=== PATIENT | male | born 1960 ===

== ENCOUNTER 2024-07-30 07:49 | Emergency (ER) | payer MEDICARE, SELFPAY ==
--- NOTE | ~2024-07-30 | CT_ITS ---
EXAMINATION: CT ABDOMEN AND PELVIS WITHOUT CONTRAST CLINICAL INFORMATION: Left flank pain. Vomiting. COMPARISON: None available. TECHNIQUE: Multidetector volumetric imaging was performed from the superior aspect of the liver through the pubic symphysis. Sagittal and coronal reformatted images were obtained on the technologist's workstation. This CT examination was performed using dose optimization techniques as appropriate, variously including the following: *Automated exposure control *Adjustment of mA and/or kV according to patient size (this includes techniques or standardized protocols for targeted exams where dose is matched to indication/reason for exam; i.e. extremities or head) *Use of iterative reconstruction technique DLP: 379 mGy-cm FINDINGS: Visualized lung bases demonstrate mild dependent atelectasis. The liver is normal in size. There is a 2 cm cyst within the right hepatic lobe. Several other sub-5 mm hepatic hypodensities are too small to accurately characterize but statistically also cysts. The pancreas, spleen and adrenal glands are unremarkable. Edematous left kidney demonstrating perinephric stranding and moderate hydronephrosis. The left ureter is also moderately dilated throughout its course. An obstructing calculus is not visualized. The right kidney is grossly unremarkable. No right-sided renal calculi or right-sided hydronephrosis. Small hiatal hernia. Normal caliber loops of small and large bowel. Moderate colonic stool burden. Mild colonic diverticulosis without CT evidence to suggest active diverticulitis. Normal appendix. Normal caliber abdominal aorta. No retroperitoneal lymphadenopathy. The bladder is prominently distended. There is moderate diffuse bladder wall thickening. The prostate gland is enlarged and results in mass effect in the posterior bladder wall. Small fat-containing inguinal hernias bilaterally. No gross free pelvic fluid. No inguinal lymphadenopathy. Diffuse osteopenia. Scoliotic and degenerative changes of the spine. CT/CT abdomen pelvis wo IV con IMPRESSION: 1. Edematous left kidney demonstrating perinephric stranding and moderate hydronephrosis. The left ureter is also moderately dilated throughout its course. An obstructing calculus is not visualized. Findings may be secondary to a recently passed stone, however, an obstructing bladder mass is not excluded. Further evaluation can be obtained with direct inspection if clinically indicated. 2. The bladder is prominently distended with moderate diffuse bladder wall thickening. The prostate gland is enlarged and results in mass effect in the posterior bladder wall. 3. Moderate colonic stool burden suggesting constipation. 4. Mild colonic diverticulosis without CT evidence to suggest active diverticulitis. Fleischner guidelines were followed. Electronically signed by: Joon Villalobos MD 07/30/2024 10:30 AM EDT
[2024-07-30 07:53] VITALS: BP 122/84; PULSE 90; O2SAT 98
[2024-07-30 07:55] VITALS: BP 136/77; PULSE 62; RESP 18; TEMP 36.3; O2SAT 100; BMI 21.3
--- NOTE | 2024-07-30 08:03 | ED_ITS ---
HPI - Abdominal Pain General Chief Complaint: General Medical Stated Complaint: FLANK PAIN,H/O STONES PER EMS Time Seen by Provider: 07/30/24 07:55 Source: patient and EMS Mode of arrival: EMS Limitations: no limitations History of Present Illness ED Provider: LATRICIA HPI narrative: 64 yo male with PMH of kidney stones reports 24 hours of L flank pain that became acutely worse in the middle of the night when he tried to urinate. He has had n/v no diarrhea. NO fevers. He notes it feels like he has a kidney stone. He states he is in a lot of pain right now. MD elicited complaint: flank pain Pertinent past history: kidney stones Onset (ago): day(s) (1) Pain Consistency: constant Location: L flank Severity: moderate Quality: stabbing Radiation: LLQ Migration to: no migration Exacerbating factors: nothing Relieving factors: nothing Context: history of similar episodes Associated symptoms: nausea and vomiting Related Data Previous Rx's ?Medication ?Instructions ?Recorded tamsulosin 0.4 mg capsule 0.4 mg PO DAILY 30 days #30 caps 07/30/24 Allergies Allergy/AdvReac Type Severity Reaction Status Date / Time aspirin [Aspirin] Allergy Mild UNKNOWN Verified 07/30/24 08:53 cefazolin [From Kefzol] Allergy Mild RASH Verified 07/30/24 08:53 Review of Systems Review of Systems Constitutional : No Weight loss, No Fever, No Chills ENT/Mouth : No sore throat, No Rhinorrhea Eyes: No Swelling, No Redness Cardiovascular : No Chest Pain, No SOB, NoEdema Respiratory : No Cough, No Sputum, No Wheezing Gastrointestinal : Positive Nausea, Positive Vomiting, no Diarrhea, positive flank Pain, No Hematochezia, No Melena Genitourinary : No Dysuria, No Urinary Frequency, No Hematuria, No Urgency Musculoskeletal : No joint pain, No Myalgias, No Joint Swelling Skin : No Skin Lesions, No rash Neuro : No Weakness, No Numbness, No Dizziness, No Headache Psych : No Anxiety/Panic, No Depression All other systems reviewed and are negative. [facility] Past Medical History Attestation statement: The following information was validated with the patient. Medical History Hearing loss Social History Social History (Updated 07/30/24 @ 08:06 by Felicity Lozano DO) Patient Tobacco Use Status: Never used Tobacco Smoked in Last 30 Days: No Use of substances other than those prescribed or required for medical reasons: No Advance Directives: No Advance Directives Information Provided: No Do you have a plan to hurt others: No Plan Physical Exam ED Vital Signs: Vital Signs - 24 hr 07/30/24 07:55 Temperature 97.4 F Pulse Rate 62 Respiratory Rate 18 Blood Pressure 136/77 Pulse Oximetry 100 Oxygen Delivery Method Room Air BMI result Body Mass Index 21.3 Appearance: Alert. Oriented X3. No acute distress. Eyes: Pupils equal, round and reactive to light. ENT: Pharynx normal. Neck: Normal inspection. Neck supple. CVS: Normal heart rate and rhythm. Pulses normal. Respiratory: No respiratory distress. Breath sounds normal. Abdomen: Soft and nontender. I do not feel any hernias on exam in either groin that are protruding Skin: Skin warm and dry. Normal skin color. Normal skin turgor. Extremities: No lower extremity edema. in both hands pinky fingers are cold and purple he states this is a normal phenomenon for him in the cold but he is not sure about raynauds dx Neuro: Oriented X 3. No motor deficit. No sensory deficit. Course Course Course Narrative: acute retention noted on CT scan unable to urinate miller ordered Medical Decision Making Medical Decision Making [facility] Narrative: 64 yo male with PMH of hearing loss and kidney stones here with c/o L flank pain at this time will need labs, UA, CT scan for renal colic, colitis, diverticulitis, hernia. IV morphine ordered for pain. Differential Diagnosis Differential Diagnoses: The differential diagnosis associated with the presentation includes renal colic, colitis, diverticulitis, hernia Admission/Observation Consideration of admission/observation: Escalation of care including admission/observation considered feels better after miller can be DC home with miller and outpatient urology Lab Data [facility] Lab Attestation statement: I reviewed the patient's lab results. 07/30/24 08:13 07/30/24 08:13 Labs: Lab Results 07/30/24 Range/Units 08:13 WBC 7.0 (4.8-10.8) X10*3/uL RBC 4.47 L (4.60-5.80) X10*6/uL Hgb 13.6 L (14.0-18.0) g/dl Hct 39.3 L (42.0-52.0) % MCV 87.9 (80.0-98.0) fL MCH 30.4 (27.0-33.0) pg MCHC 34.6 (31.0-36.0) g/dl RDW 11.9 (11.0-16.0) % Plt Count 141 L (160-400) X10*3/uL MPV 10.7 (9.4-12.4) fL Immature Gran % (Auto) 0.3 (0.0-0.4) % Neut % (Auto) 81.1 H (45-73) % Lymph % (Auto) 8.9 L (20-40) % Harmon % (Auto) 8.6 (2-11) % Eos % (Auto) 0.7 (0-4) % Baso % (Auto) 0.4 (0-2) % Lymph # (Auto) 0.6 L (1.2-4.9) X10*3/uL Harmon # (Auto) 0.6 (0.1-1.2) X10*3/uL Eos # (Auto) 0.1 (0.0-0.4) X10*3/uL Baso # (Auto) 0.0 (0.0-0.2) X10*3/uL Abs Immat Gran (auto) 0.02 (0.00-0.03) X10*3/uL Absolute Neuts (auto) 5.7 (2.0-8.3) x10*3/uL Absolute Nucleated RBC 0.000 (0.0-0.012) X10*3/uL Nucleated RBC % (auto) 0.0 (0.0-0.2) /100WBC Sodium 136 (135-145) mmol/L Potassium 3.9 (3.3-5.1) mmol/L Chloride 99 (96-108) mmol/L Carbon Dioxide 24 (22-29) mmol/L Anion Gap 17 (12-20) BUN 21 H (9-16) mg/dL Creatinine 1.06 (0.5-1.4) mg/dL Estim Creat Clear Calc 58.7 Estimated GFR > 60 Random Glucose 157 H (60-115) mg/dL Calcium 9.8 (8.4-10.2) mg/dL Magnesium 1.8 (1.6-2.6) mg/dL Total Bilirubin 0.7 (0.0-1.0) mg/dL Direct Bilirubin 0.2 (0.0-0.5) mg/dL AST 24 (5-37) U/L ALT 14 (0-40) U/L Alkaline Phosphatase 93 (39-117) U/L Total Protein 7.3 (6.5-8.0) g/dL Albumin 4.3 (3.5-5.0) g/dL Lipase 13 (8-78) U/L Urine Color Yellow Urine Appearance Clear Urine pH 7.5 (5.0-9.0) Ur Specific [place] 1.015 (1.005-1.025) Urine Protein Negative (Neg-Trace) mg/dL Urine Glucose (UA) Negative (Negative) mg/dL Urine Ketones 15 (Negative) mg/dL Urine Blood Trace H (Negative) Urine Nitrite Negative (Negative) Ur Leukocyte Esterase Negative (Negative) Urine RBC 6-10 H (0-2) /HPF Urine WBC 0-5 (0-5) /HPF Ur Squamous Epith Cells 0-2 (0-2) /HPF Urine Bacteria None Seen (None Seen) Hyaline Casts 0-2 (0-2) /LPF Independent Interpretation I performed an independent interpretation of an: CT Scan (no stone acute bladder distention) Radiology Impression Discussion of test interpretation with radiology: I have reviewed the radiologist's reading. Independent Historian Clinical information obtained from an independent historian. History obtained from or confirmed by: EMS Medications Administered Discontinued Medications Generic Name Dose Route Start Last Admin Trade Name Rosalinda PRN Reason Stop Dose Admin Morphine Sulfate 4 mg 07/30/24 07:59 07/30/24 08:20 Morphine Sulfate 4 Mg/Ml Cartridge IVPUSH 07/30/24 08:00 4 mg ONCE ONE Administration Protocol Ondansetron HCl 4 mg 07/30/24 07:59 07/30/24 08:13 Ondansetron Hcl 4 Mg/2 Ml Vial IVPUSH 07/30/24 08:00 4 mg ONCE ONE Administration Discharge Plan Discharge Clinical Impression: Acute urinary retention Patient Disposition: Home, Self-Care Instructions: Urinary Retention in Men (ED), Miller Catheter Placement and Care (ED) Additional Instructions: please call urology for follow up today catheter in place until you see them return for fevers, vomiting, worsening pain, clots in urine bag, red urine darker than koolaid or any other concerns please notify and follow up with your primary care doctor as well CT/CT abdomen pelvis wo IV con IMPRESSION: 1. Edematous left kidney demonstrating perinephric stranding and moderate hydronephrosis. The left ureter is also moderately dilated throughout its course. An obstructing calculus is not visualized. Findings may be secondary to a recently passed stone, however, an obstructing bladder mass is not excluded. Further evaluation can be obtained with direct inspection if clinically indicated. 2. The bladder is prominently distended with moderate diffuse bladder wall thickening. The prostate gland is enlarged and results in mass effect in the posterior bladder wall. 3. Moderate colonic stool burden suggesting constipation. 4. Mild colonic diverticulosis without CT evidence to suggest active diverticulitis. Prescriptions: New tamsulosin 0.4 mg capsule 0.4 mg PO DAILY 30 Days Qty: 30 0RF Referrals: [facility] [Provider Group] Print Language: Somali
[2024-07-30] MEDS: ondansetron HCL 4 MG/2 ML VIAL IVPUSH (08:13)
[2024-07-30] MEDS: Morphine Sulfate 4 MG/ML CARTRIDGE IVPUSH (08:20)
--- NOTE | 2024-07-30 08:22 | PC.NURSE ---
patient presents to ED with cc of left sided flank pain for the last 24 hours or so, patient states he has a hx of kidney stones and this feels like it has in the past. patient denies other significant past medical history, patient states he has had some difficulty starting stream but denies painful urination. patient denies fevers, nausea vomiting or diarrhea, initially patient declined pain medication, this RN placed 20g PIV and marce labs,medicated with nausea medication, patient then called this RN over and requested pain medication. patient medicated per DEC. patient ambulatory with steady gait to bathroom, was able to provide urine sample, abdomen is soft nontender, denies difficulty moving bowels. plan of care ongoing
[2024-07-30 08:26] LABS: MANUAL DIFF FLAG NO
[2024-07-30 08:27] LABS: Basophils Percent Auto 0.4 % (0-2); Eosinophils Absolute Auto 0.1 X10*3/uL (0.0-0.4); Eosinophils Percent Auto 0.7 % (0-4); Hematocrit 39.3 % (42.0-52.0); Hemoglobin 13.6 g/dl (14.0-18.0); Imm Gran Abs Auto 0.02 X10*3/uL (0.00-0.03); Imm Gran Pct Auto 0.3 % (0.0-0.4); Lymphocytes Absolute Auto 0.6 X10*3/uL (1.2-4.9); Lymphocytes Percent Auto 8.9 % (20-40); Mean Corpuscular HGB Conc 34.6 g/dl (31.0-36.0); Mean Corpuscular Hemoglobin 30.4 pg (27.0-33.0); Mean Corpuscular Volume 87.9 fL (80.0-98.0); Mean Platelet Volume 10.7 fL (9.4-12.4); Monocytes Absolute Auto 0.6 X10*3/uL (0.1-1.2); Monocytes Percent Auto 8.6 % (2-11); Neutrophils Absolute Auto 5.7 x10*3/uL (2.0-8.3); Neutrophils Percent Auto 81.1 % (45-73); Platelet Count 141 X10*3/uL (160-400); Red Blood Count 4.47 X10*6/uL (4.60-5.80); Red Cell Distribution Width 11.9 % (11.0-16.0)
[2024-07-30 08:29] LABS: Appearance Urine Clear; Color Urine Yellow; Glucose Urine UA Negative (Negative); Leukocyte Esterase Urine Negative (Negative); Nitrite Urine Negative (Negative); PH 7.5 (5.0-9.0); Specific Gravity - Urine 1.015 (1.005-1.025); UMIC TRIGGER UACC YES; Urine Blood Trace (Negative); Urine Ketones 15 mg/dL (Negative); Urine Protein Negative (Neg-Trace)
[2024-07-30 08:34] LABS: Bacteria Urine None Seen (None Seen); Hyaline Casts Urine 0-2 /LPF (0-2); Squamous Epithelial Cell Urine 0-2 /HPF (0-2); WBC Urine 0-5 /HPF (0-5)
[2024-07-30 08:45] LABS: Alanine Aminotransferase 14 U/L (0-40); Albumin Level 4.3 g/dL (3.5-5.0); Alkaline Phosphatase 93 U/L (39-117); Anion Gap 17 (12-20); Aspartate Amino Transferase 24 U/L (5-37); Bilirubin Direct 0.2 mg/dL (0.0-0.5); Bilirubin Total 0.7 mg/dL (0.0-1.0); Blood Urea Nitrogen 21 mg/dL (9-16); Calcium 9.8 mg/dL (8.4-10.2); Carbon Dioxide 24 mmol/L (22-29); Chloride 99 mmol/L (96-108); Creatinine Clr Calc Pharmacy 58.7; Estimated Glomerular Filt Rate > 60; Glucose Random 157 mg/dL (60-115); Lipase 13 U/L (8-78); Magnesium 1.8 mg/dL (1.6-2.6); Potassium 3.9 mmol/L (3.3-5.1); Sodium 136 mmol/L (135-145); Total Protein 7.3 g/dL (6.5-8.0)
--- NOTE | 2024-07-30 10:00 | PC.NURSE ---
MD called this RN over, patient noted on CT scan to have large bladder, patient bladder scanned and noted to have >800mL of urine in bladder, patient not complaining of any pain at this time, indwelling catheter placed at this time, approximately 1400mL of clear yellow urine drained immediately from patients bladder. MD made aware
[2024-07-30 10:54] VITALS: BP 113/67; PULSE 90; RESP 18; TEMP 36.4
== END 2024-07-30 10:58 | disposition home or self-care (01) ==
PROVIDERS: Emergency Provider Emergency Medicine
DX: R33.9 Retention of urine, unspecified (principal); R10.2 Pelvic and perineal pain; Z79.899 Other long term (current) drug therapy
CPT/HCPCS: 36415; 74176; 80048; 80076; 81001; 83690; 83735; 85025; 96374; 96375; 99284; J2270; J2405

== ENCOUNTER 2024-08-31 08:12 | Outpatient (AMB) | payer MEDICARE, SELFPAY ==
--- NOTE | 2024-08-30 15:26 | A.OFFVIS_ITS ---
Intake Visit Reasons: Voiding trial Intake Note: Patient is present for voiding trail Urology Medication:tamsulosin Antibiotic Allergy:none Blood Thinner:none TODAY'S PVR:0ML'S Poultry Picker Required: No Allergies aspirin [Aspirin] Allergy (Mild, Verified 08/31/24 08:28) UNKNOWN cefazolin [From Kefzol] Allergy (Mild, Verified 08/31/24 08:28) RASH Medication List - Last Reconciled 08/31/24 by Jacob Mccullough MD tamsulosin 0.4 mg PO DAILY 30 days HPI Comments Details: 08/31/24--Edward was seen in the ED 07/30/24--64 yo male with PMH of kidney stones presented with L flank pain and difficulty urinating, miller was placed. Voiding trial today. Discussed with the patient that I want to continue the tamsulosin daily. The patient states he has a history of kidney stones about 20 years he passed a stone on the right side. Plan will re-evaluate kidneys with renal ultrasound to be sure that the hydronephrosis has resolved. Also PSA screening. no recent PSA CT - BPH, left hydro no stone, c/w recently passed stone CTAP-07/30/24--Edematous left kidney demonstrating perinephric stranding and moderate hydronephrosis. The left ureter is also moderately dilated throughout its course. An obstructing calculus is not visualized. Findings may be secondary to a recently passed stone, however, an obstructing bladder mass is not excluded. Further evaluation can be obtained with direct inspection if clinically indicated. 2. The bladder is prominently distended with moderate diffuse bladder wall thickening. The prostate gland is enl PFSH Medical History Hearing loss Social History Patient Tobacco Use Status: Never used Tobacco Review of Systems Const All systems reviewed & are unremarkable except as noted in HPI and below Reports no additional complaints Eyes Reports no additional complaints ENT Reports no additional complaints Card Reports no additional complaints Resp Reports no additional complaints GI Reports no additional complaints Reports as per HPI Musc Reports no additional complaints Skin/Breast Reports system reviewed and no additional complaints, except as documented Neuro Reports no additional complaints Psych Reports no additional complaints Endo Reports no additional complaints Magen/Lymph Reports no additional complaints Aller/Immun Reports no additional complaints Physical Exam Const General: healthy appearing, no acute distress and well developed Orientation/consciousness: patient oriented x3 HEENT Head: Yes normocephalic and Yes atraumatic Eyes Conjunctivae: conjunctivae normal Neck Neck: Yes normal visual inspection Chest Chest palpation & inspection: normal inspection of the chest Resp Effort & Inspection: normal respiratory effort Cardio Rate: regular rate GI Inspection: Yes normal to inspection Palpation (GI): Soft to palpation Penis: normal penis Scrotum: scrotum normal Skin General skin exam: no rashes or lesions noted Neuro General: patient oriented x3 Extrem General: No pedal edema Psych Appearance: grossly normal Affect: normal affect Office Procedures Bladder/Catheter Procedure Details: Patient presents to office for VT. 120mls sterile water instilled through catheter, patient tolerated instillation well. Removed 18fr miller catheter, marquis ent tolerated removal well. Patient able to void approximately 50mls. MA to bladder scan patient and patient to see Dr. Castaneda for new patient visit after bladder scan completed. 42545-[id number] of Bladder Procedure code (CPT) selection complete Post Void Residual Post Residual Void Post Void Residual (PVR): 0 56808-Cnbk Void Residual by ultrasound Results Reviewed Results Reviewed: Date of Service: 07/30/24 CT ABDOMEN AND PELVIS WITHOUT CONTRAST CLINICAL INFORMATION: Left flank pain. Vomiting. COMPARISON: None available. TECHNIQUE: Multidetector volumetric imaging was performed from the superior aspect of the liver through the pubic symphysis. Sagittal and coronal reformatted images were obtained on the technologist's workstation. This CT examination was performed using dose optimization techniques as appropriate, variously including the following: *Automated exposure control *Adjustment of mA and/or kV according to patient size (this includes techniques or standardized protocols for targeted exams where dose is matched to indication/reason for exam; i.e. extremities or head) *Use of iterative reconstruction technique DLP: 379 mGy-cm FINDINGS: Visualized lung bases demonstrate mild dependent atelectasis. The liver is normal in size. There is a 2 cm cyst within the right hepatic lobe. Several other sub-5 mm hepatic hypodensities are too small to accurately characterize but statistically also cysts. The pancreas, spleen and adrenal glands are unremarkable. Edematous left kidney demonstrating perinephric stranding and moderate hydronephrosis. The left ureter is also moderately dilated throughout its course. An obstructing calculus is not visualized. The right kidney is grossly unremarkable. No right-sided renal calculi or right-sided hydronephrosis. Small hiatal hernia. Normal caliber loops of small and large bowel. Moderate colonic stool burden. Mild colonic diverticulosis without CT evidence to suggest active diverticulitis. Normal appendix. Normal caliber abdominal aorta. No retroperitoneal lymphadenopathy. The bladder is prominently distended. There is moderate diffuse bladder wall thickening. The prostate gland is enlarged and results in mass effect in the posterior bladder wall. Small fat-containing inguinal hernias bilaterally. No gross free pelvic fluid. No inguinal lymphadenopathy. Diffuse osteopenia. Scoliotic and degenerative changes of the spine. IMPRESSION: 1. Edematous left kidney demonstrating perinephric stranding and moderate hydronephrosis. The left ureter is also moderately dilated throughout its course. An obstructing calculus is not visualized. Findings may be secondary to a recently passed stone, however, an obstructing bladder mass is not excluded. Further evaluation can be obtained with direct inspection if clinically indicated. 2. The bladder is prominently distended with moderate diffuse bladder wall thickening. The prostate gland is enlarged and results in mass effect in the posterior bladder wall. 3. Moderate colonic stool burden suggesting constipation. 4. Mild colonic diverticulosis without CT evidence to suggest active diverticulitis. Assessment & Plan Assessment & Plan (1) Urinary retention: Code(s): R33.9 - Retention of urine, unspecified Category: Medical (2) BPH loc w urin obs/LUTS: Code(s): N40.1 - Benign prostatic hyperplasia with lower urinary tract symptoms Category: Medical (3) Hydronephrosis: Code(s): N13.30 - Unspecified hydronephrosis Category: Medical (4) Screening PSA (prostate specific antigen): Code(s): Z12.5 - Encounter for screening for malignant neoplasm of prostate Category: Medical Plan Voiding trial today. Discussed with the patient that I want to continue the tamsulosin daily. The patient states he has a history of kidney stones about 20 years he passed a stone on the right side. Plan will re-evaluate kidneys with renal ultrasound to be sure that the hydronephrosis has resolved. Also PSA screening. Orders: Orders AMB Bladder/Catheter Procedure Today N13.30 - Unspecified hydronephrosis, N40.1 - Benign prostatic hyperplasia with lower urinary tract symptoms, R33.9 - Retention of urine, unspecified PSA,Total (Free>4and<10) 1 Month Z12.5 - Encounter for screening for malignant neoplasm of prostate US renal BI Today N13.30 - Unspecified hydronephrosis Medications: Refilled tamsulosin 0.4 mg PO DAILY 30 days 90 caps 3RF Patient Instructions: The patient had an opportunity to ask questions regarding treatment plan. The patient expressed understanding and agreement with the above treatment plan. The patient is aware they should contact our office by phone for worsening of their current condition or the appearance of new symptoms. Compliance is encouraged with any medications and followup testing that is ordered. It is a privilege to be allowed the opportunity to participate in the urologic care of your patient. If you have any questions or concerns regarding treatment for the above conditions please do not hesitate to contact me. The office telephone contact is [phone]. This note is constructed in part using voice recognition software. While every effort has been made to ensure accuracy day haul youth supervisor errors may have been included. Yours sincerely, Jacob Mccullough MD Coding Level of Care Code New Pt Level 4 (62242) Diagnoses Urinary retention R33.9 BPH loc w urin obs/LUTS N40.1 Hydronephrosis N13.30 Screening PSA (prostate specific antigen) Z12.5 CPT Codes Bladder/Catheter Procedure - CPT: 74832-Poaghvqlxk of Bladder ([id number]) Post Residual Void - PVR CPT Code: 86873-Hdwp Void Residual by ultrasound ([id number])
== END 2024-08-31 09:14 | disposition home or self-care (01) ==
PROVIDERS: Visit Provider Urology
DX: R33.9 Retention of urine, unspecified (principal); N40.1 Benign prostatic hyperplasia with lower urinary tract symptoms; N13.30 Unspecified hydronephrosis; Z12.5 Encounter for screening for malignant neoplasm of prostate
CPT/HCPCS: 51700; 99204

== ENCOUNTER → 2024-08-31 08:12 | Outpatient (BNVA) | payer MEDICARE, SELFPAY | PROVIDERS: Visit Provider Urology | DX: N40.1 Benign prostatic hyperplasia with lower urinary tract symptoms (principal); R33.8 Other retention of urine; N13.30 Unspecified hydronephrosis; Z87.442 Personal history of urinary calculi; Z12.5 Encounter for screening for malignant neoplasm of prostate | CPT/HCPCS: 51700; 51798; 99202 ==

== ENCOUNTER 2024-09-12 06:51 | Emergency (ER) | payer MEDICARE, SELFPAY ==
--- NOTE | ~2024-09-12 | US_ITS ---
EXAMINATION: US RETROPERITONEAL LIMITED (RENAL ONLY) CLINICAL INFORMATION: Left flank pain. COMPARISON: None available. TECHNIQUE: Grayscale and Doppler images of the right and left kidney were obtained. FINDINGS: RIGHT KIDNEY: 9.5 x 4.7 x 4.8 cm (SAG x AP x TRV). The kidney is normal in size, contour, and echogenicity. Renal cortical thickness is normal. Minimal pelvic fullness without significant hydronephrosis. No definite renal stone. No discrete parenchymal lesion. LEFT KIDNEY: 9.9 x 4.7 x 4.7 cm (SAG x AP x TRV). The kidney is normal in size, contour, and echogenicity. Renal cortical thickness is normal. Minimal pelvic fullness without significant hydronephrosis. No definite renal stone. No discrete parenchymal lesion. US/US renal BI IMPRESSION: Minimal bilateral pelvic fullness without significant hydronephrosis. No definite renal stone. Electronically signed by: Oskar Hu MD 09/12/2024 10:01 AM [facility]
--- NOTE | ~2024-09-12 | US_ITS ---
EXAMINATION: US SCROTUM WITH SCROTAL DOPPLER CLINICAL INFORMATION: Left testicular pain and swelling. COMPARISON: None available. TECHNIQUE: A sonogram of the scrotum was performed assessing oshea-scale appearance and color Doppler flow. Spectral Doppler analysis of the arterial and venous flow were performed in the testes bilaterally. FINDINGS: RIGHT: Right testicle measures 3.6 x 2.5 x 2.6 cm, volume 12.2 mL. No focal testicular parenchymal lesions are visualized. Spectral Doppler analysis of the arterial and venous flow is normal in the right testis. Right epididymal head is normal in size. No right hydrocele or varicocele is seen. Right epididymal Doppler flow is normal. LEFT: Left testicle measures 3.6 x 2.9 x 3.7 cm, volume 18.2 mL. Left testicular parenchymal echotexture is heterogeneous. There is increased vascularity in the left testicle compared to the right side. Spectral Doppler analysis of the arterial and venous flow is normal in the left testis. Left epididymis appears prominent in size with increased vascularity. Small left hydrocele is noted with internal septations. No left varicocele. There is mild asymmetrical thickening of the left-sided scrotal skin compared to right. No evidence of focal abscess collection within the skin and subcutaneous tissue of the left scrotum or within the left testicle or extratesticular region. There is no evidence of findings suggestive of Sasha gangrene. Recommend clinical correlation. US/US scrotum IMPRESSION: 1. Findings are most likely suggestive of acute left epididymoorchitis. However given the heterogeneous echotexture of the left testicular parenchyma, recommend close clinical follow-up and short-term interval follow-up imaging to exclude other underlying infiltrative disease process. No evidence of testicular or extratesticular abscess collection at this time. 2. No evidence of active testicular torsion. 3. Small left complex hydrocele. 4. Mild asymmetrical thickening of the left-sided scrotal skin and subcutaneous tissue without focal fluid collection or increased vascularity. The findings were discussed in detail with Dr. Lozano on 09/12/2024 at 10:02 AM. Electronically signed by: Logan Nicole MD 09/12/2024 10:09 AM [facility] [place]
--- NOTE | ~2024-09-12 | US_ITS ---
EXAMINATION: US SCROTUM WITH SCROTAL DOPPLER CLINICAL INFORMATION: Left testicular pain and swelling. COMPARISON: None available. TECHNIQUE: A sonogram of the scrotum was performed assessing oshea-scale appearance and color Doppler flow. Spectral Doppler analysis of the arterial and venous flow were performed in the testes bilaterally. FINDINGS: RIGHT: Right testicle measures 3.6 x 2.5 x 2.6 cm, volume 12.2 mL. No focal testicular parenchymal lesions are visualized. Spectral Doppler analysis of the arterial and venous flow is normal in the right testis. Right epididymal head is normal in size. No right hydrocele or varicocele is seen. Right epididymal Doppler flow is normal. LEFT: Left testicle measures 3.6 x 2.9 x 3.7 cm, volume 18.2 mL. Left testicular parenchymal echotexture is heterogeneous. There is increased vascularity in the left testicle compared to the right side. Spectral Doppler analysis of the arterial and venous flow is normal in the left testis. Left epididymis appears prominent in size with increased vascularity. Small left hydrocele is noted with internal septations. No left varicocele. There is mild asymmetrical thickening of the left-sided scrotal skin compared to right. No evidence of focal abscess collection within the skin and subcutaneous tissue of the left scrotum or within the left testicle or extratesticular region. There is no evidence of findings suggestive of Sasha gangrene. Recommend clinical correlation. US/US scrotum doppler IMPRESSION: 1. Findings are most likely suggestive of acute left epididymoorchitis. However given the heterogeneous echotexture of the left testicular parenchyma, recommend close clinical follow-up and short-term interval follow-up imaging to exclude other underlying infiltrative disease process. No evidence of testicular or extratesticular abscess collection at this time. 2. No evidence of active testicular torsion. 3. Small left complex hydrocele. 4. Mild asymmetrical thickening of the left-sided scrotal skin and subcutaneous tissue without focal fluid collection or increased vascularity. The findings were discussed in detail with Dr. Lozano on 09/12/2024 at 10:02 AM. Electronically signed by: Logan Nicole MD 09/12/2024 10:09 AM [facility] [place]
[2024-09-12 06:53] VITALS: BP 121/76; PULSE 98; RESP 20; TEMP 36.6; O2SAT 100
--- NOTE | 2024-09-12 07:29 | ED_ITS ---
HPI - Male Genitourinary General Chief complaint: Urogenital-Male Stated complaint: possible UTI that is spreading Time Seen by Provider: 09/12/24 07:07 Source: patient and old records reviewed Mode of arrival: ambulatory Limitations: no limitations History of Present Illness ED Provider: LATRICIA AREVALO Narrative: 64 yo male with PMH of kidney stones and BPH who was seen in our ED on 07/30 for retention and L hydronephrosis on CT scan but no infection and started on miller catheter. Seen in urology office 08/30 cathteter removed but since then havin pain and AM noted L testicle pain and swelling. He has no fevers or chills. He refuses another catheter. He is not vomiting. MD Complaint: testicle pain and testicle swelling Onset (ago): week(s) (but worse over past few days) Duration: constant Location: left testicle Radiation: penis and left testicle Severity: moderate Quality: aching Relieving factors: none Exacerbating factors: palpation and movement Context: indwelling catheter Associated symptoms: Reports discharge, swelling, mass and rash Related Data Previous Rx's ?Medication ?Instructions ?Recorded tamsulosin 0.4 mg capsule 0.4 mg PO DAILY 30 days #90 caps 08/31/24 amoxicillin 875 mg-potassium 1 tab PO BID #14 tabs 09/12/24 clavulanate 125 mg tablet levofloxacin 750 mg tablet 750 mg PO DAILY #9 tabs 09/12/24 Allergies Allergy/AdvReac Type Severity Reaction Status Date / Time cefazolin [From Kefzol] Allergy Mild RASH Verified 09/12/24 06:58 Review of Systems 2 Review of Systems: Constitutional : No Fever, No Chills, No Fatigue ENT/Mouth : No sore throat, No Rhinorrhea Eyes: No Eye Pain, No Swelling, No Redness Cardiovascular : No Chest Pain, No SOB, No Dyspnea on Exertion Respiratory : No Cough, No Sputum Gastrointestinal : No Nausea, No Vomiting, No Diarrhea, No abdominal Pain Genitourinary : No Dysuria, No Urinary Frequency, No Hematuria, pos testicle pain and swelling Musculoskeletal : No joint pain, No Myalgias, No Joint Swelling Skin : No Skin Lesions, No rash Neuro : No Weakness, No Numbness, No Dizziness, no Headache Psych : No Anxiety/Panic, No Depression All other systems reviewed and are negative PMFSH Past Medical History Attestation statement: The following information was validated with the patient. Source: old records reviewed Medical History Hearing loss Social History Social History Patient Tobacco Use Status: Never used Tobacco Smoked in Last 30 Days: No Use of substances other than those prescribed or required for medical reasons: No Advance Directives: No Advance Directives Information Provided: Yes Do you have a plan to hurt others: No Plan Physical Exam 2 Vital Signs: Vital Signs: Last Vital Signs Temp 97.9 F 09/12/24 10:15 Pulse 87 09/12/24 10:15 Resp 18 09/12/24 10:15 BP 117/74 09/12/24 10:15 Pulse Ox 98 09/12/24 10:15 O2 Del Method Room Air 09/12/24 10:15 BMI result Body Mass Index 20.0 Appearance: Alert. Oriented X3. No acute distress. anxious Eyes: Pupils equal, round and reactive to light. ENT: Pharynx normal. Neck: Normal inspection. Neck supple. CVS: Normal heart rate and rhythm. Pulses normal. Respiratory: No respiratory distress. Breath sounds normal. Abdomen: Soft and nontender. : Milena RN present L testicle swollen and indurated small portion under side of penis no stephane abscess felt seems more cellulitic, L spermatic cord very ttp Skin: Skin warm and dry. Normal skin color. Extremities: No lower extremity edema. Neuro: Oriented X 3. No motor deficit. No sensory deficit. Medications Administered Generic Name Dose Route Start Last Admin Trade Name Freq PRN Reason Stop Dose Admin Levofloxacin 750 mg in 150 mls @ 100 mls/hr 09/12/24 10:03 09/12/24 10:26 Levaquin IV 09/12/24 11:32 100 mls/hr ONCE ONE Administration Discontinued Medications Generic Name Dose Route Start Last Admin Trade Name Freq PRN Reason Stop Dose Admin Piperacillin Sod/Tazobactam 50 mls @ 100 mls/hr 09/12/24 07:18 09/12/24 08:34 Sod 3.375 gm/ Sodium Chloride IV 09/12/24 07:47 Infused ONCE ONE Infusion Medical Decision Making Medical Decision Making MDM Narrative: 64 yo male with PMH of kidney stones and BPH here with c/o worsening pain and testicle swelling since cath removal though he does not L testicle pain and swelling really got worse on - he denies fevers or chills. At this time he also has some mild L flank pain on exam he has cellulitis of the scrotum vs abscess. I have ordered labs, US, renal US he declines pain medications. No signs of carolyn on clinical exam. IV zosyn ordered he can tolerate PCNs per his report. Differential Diagnosis Differential Diagnoses: The differential diagnosis associated with the presentation includes cellulitis, abscess, UTI Admission/Observation Consideration of admission/observation: Escalation of care including admission/observation considered afebrile neg lactic acid normal VS WBC 12.6 he does not want to stay urinating without signs of retention he can tolerate oral it is reasonable to trial outpatient levofloxacin and cephalexin Lab Data MDM Lab Attestation statement: I reviewed the patient's lab results. 09/12/24 07:26 09/12/24 07:27 Labs: Lab Results 09/12/24 09/12/24 09/12/24 Range/Units 07:26 07:27 07:30 WBC 12.6 H (4.8-10.8) X10*3/uL RBC 4.28 L (4.60-5.80) X10*6/uL Hgb 12.6 L (14.0-18.0) g/dl Hct 37.1 L (42.0-52.0) % MCV 86.7 (80.0-98.0) fL MCH 29.4 (27.0-33.0) pg MCHC 34.0 (31.0-36.0) g/dl RDW 11.8 (11.0-16.0) % Plt Count 180 D (160-400) X10*3/uL MPV 10.0 (9.4-12.4) fL Immature Gran % (Auto) 0.6 H (0.0-0.4) % Neut % (Auto) 83.2 H (45-73) % Lymph % (Auto) 5.1 L (20-40) % [place] % (Auto) 10.8 (2-11) % Eos % (Auto) 0.1 (0-4) % Baso % (Auto) 0.2 (0-2) % Lymph # (Auto) 0.7 L (1.2-4.9) X10*3/uL [place] # (Auto) 1.4 H (0.1-1.2) X10*3/uL Eos # (Auto) 0.0 (0.0-0.4) X10*3/uL Baso # (Auto) 0.0 (0.0-0.2) X10*3/uL Abs Immat Gran (auto) 0.07 H (0.00-0.03) X10*3/uL Absolute Neuts (auto) 10.5 H (2.0-8.3) x10*3/uL Absolute Nucleated RBC 0.000 (0.0-0.012) X10*3/uL Nucleated RBC % (auto) 0.0 (0.0-0.2) /100WBC Hold Purple Top SEE NOTE PT 13.4 H (10.9-12.4) SEC INR 1.2 H (0.9-1.1) Sodium 136 (135-145) mmol/L Potassium 4.0 (3.3-5.1) mmol/L Chloride 98 (96-108) mmol/L Carbon Dioxide 28 (22-29) mmol/L Anion Gap 14 (12-20) BUN 15 (9-16) mg/dL Creatinine 0.90 (0.5-1.4) mg/dL Estim Creat Clear Calc 66.8 Estimated GFR > 60 Random Glucose 98 (60-115) mg/dL Lactic Acid 1.2 (0.5-2.0) mmol/L Calcium 10.0 (8.4-10.2) mg/dL Magnesium 2.0 (1.6-2.6) mg/dL Total Bilirubin 1.1 H (0.0-1.0) mg/dL Direct Bilirubin 0.4 (0.0-0.5) mg/dL AST 23 (5-37) U/L ALT 12 (0-40) U/L Alkaline Phosphatase 98 (39-117) U/L Total Protein 7.5 (6.5-8.0) g/dL Albumin 4.0 (3.5-5.0) g/dL Urine Color Urine Appearance Urine pH (5.0-9.0) Ur Specific [place] (1.005-1.025) Urine Protein (Neg-Trace) mg/dL Urine Glucose (UA) (Negative) mg/dL Urine Ketones (Negative) mg/dL Urine Blood (Negative) Urine Nitrite (Negative) Ur Leukocyte Esterase (Negative) Urine RBC (0-2) /HPF Urine WBC (0-5) /HPF Ur Squamous Epith Cells (0-2) /HPF Urine Bacteria (None Seen) Hyaline Casts (0-2) /LPF 09/12/24 Range/Units 07:58 WBC (4.8-10.8) X10*3/uL RBC (4.60-5.80) X10*6/uL Hgb (14.0-18.0) g/dl Hct (42.0-52.0) % MCV (80.0-98.0) fL MCH (27.0-33.0) pg MCHC (31.0-36.0) g/dl RDW (11.0-16.0) % Plt Count (160-400) X10*3/uL MPV (9.4-12.4) fL Immature Gran % (Auto) (0.0-0.4) % Neut % (Auto) (45-73) % Lymph % (Auto) (20-40) % [place] % (Auto) (2-11) % Eos % (Auto) (0-4) % Baso % (Auto) (0-2) % Lymph # (Auto) (1.2-4.9) X10*3/uL [place] # (Auto) (0.1-1.2) X10*3/uL Eos # (Auto) (0.0-0.4) X10*3/uL Baso # (Auto) (0.0-0.2) X10*3/uL Abs Immat Gran (auto) (0.00-0.03) X10*3/uL Absolute Neuts (auto) (2.0-8.3) x10*3/uL Absolute Nucleated RBC (0.0-0.012) X10*3/uL Nucleated RBC % (auto) (0.0-0.2) /100WBC Hold Purple Top PT (10.9-12.4) SEC INR (0.9-1.1) Sodium (135-145) mmol/L Potassium (3.3-5.1) mmol/L Chloride (96-108) mmol/L Carbon Dioxide (22-29) mmol/L Anion Gap (12-20) BUN (9-16) mg/dL Creatinine (0.5-1.4) mg/dL Estim Creat Clear Calc Estimated GFR Random Glucose (60-115) mg/dL Lactic Acid (0.5-2.0) mmol/L Calcium (8.4-10.2) mg/dL Magnesium (1.6-2.6) mg/dL Total Bilirubin (0.0-1.0) mg/dL Direct Bilirubin (0.0-0.5) mg/dL AST (5-37) U/L ALT (0-40) U/L Alkaline Phosphatase (39-117) U/L Total Protein (6.5-8.0) g/dL Albumin (3.5-5.0) g/dL Urine Color Yellow Urine Appearance Turbid Urine pH 7.5 (5.0-9.0) Ur Specific [place] 1.020 (1.005-1.025) Urine Protein 100 (2+) H (Neg-Trace) mg/dL Urine Glucose (UA) Negative (Negative) mg/dL Urine Ketones 15 (Negative) mg/dL Urine Blood Large (3+) H (Negative) Urine Nitrite Positive H (Negative) Ur Leukocyte Esterase Large (3+) H (Negative) Urine RBC >20 H (0-2) /HPF Urine WBC >50 H (0-5) /HPF Ur Squamous Epith Cells 0-2 (0-2) /HPF Urine Bacteria 4+ (None Seen) Hyaline Casts 0-2 (0-2) /LPF Independent Interpretation I performed an independent interpretation of an: Ultrasound (no torsion no abscess and hydronephrosis improved) Radiology Impression Discussion of test interpretation with radiology: I discussed test interpretation with the radiologist and I have reviewed the radiologist's reading. Radiologist Impression: call from Radiology 1002am L epidymitis and orchitis, L testicular is heterogenous follow up US make sure no other infiltrative process External Record Review External record reviewed: Inpatient record and Outpatient record Prescription Management I considered prescription management with: Pain Medication and Antibiotic Discharge Plan Discharge Clinical Impression: Orchitis and epididymitis, Cellulitis of scrotum Urinary tract infection Qualifiers: Urinary tract infection type: acute cystitis Hematuria presence: with hematuria Qualified Code(s): N30.01 - Acute cystitis with hematuria Patient Disposition: Home, Self-Care Instructions: Epididymo-Orchitis (ED), Urinary Tract Infection in Men (ED), Cellulitis (ED) Additional Instructions: next dose of the levofloxacin is tomorrow AM augmentin (amoxicillin) dose is tonight take a probiotic with both antibiotics, avoid strenuous activity beyond stretching while on antibiotics and for 5 days after you can injure your tendons stay hydrated but no more than 60 ounces of water a day wear tight fitting underwear for support On amoxicillin-clavulanate, softer bowel movements are to be expected. Call your provider if you move your bowels more than 4 times a day, your bowel movements are almost all liquid, or you get a rash.? return for fevers, worsening pain, confusion, vomiting, unable to eat or drink or any other concerns call Urologist Saturday and follow up within a week REPEAT ULTRASOUND OF LEFT TESTICLE ONCE ANTIBIOTICS COMPLETED RIGHT KIDNEY: 9.5 x 4.7 x 4.8 cm (SAG x AP x TRV). The kidney is normal in size, contour, and echogenicity. Renal cortical thickness is normal. Minimal pelvic fullness without significant hydronephrosis. No definite renal stone. No discrete parenchymal lesion. LEFT KIDNEY: 9.9 x 4.7 x 4.7 cm (SAG x AP x TRV). The kidney is normal in size, contour, and echogenicity. Renal cortical thickness is normal. Minimal pelvic fullness without significant hydronephrosis. No definite renal stone. No discrete parenchymal lesion. US/US renal BI IMPRESSION: Minimal bilateral pelvic fullness without significant hydronephrosis. No definite renal stone. US/US scrotum doppler IMPRESSION: 1. Findings are most likely suggestive of acute left epididymoorchitis. However given the heterogeneous echotexture of the left testicular parenchyma, recommend close clinical follow-up and short-term interval follow-up imaging to exclude other underlying infiltrative disease process. No evidence of testicular or extratesticular abscess collection at this time. 2. No evidence of active testicular torsion. 3. Small left complex hydrocele. 4. Mild asymmetrical thickening of the left-sided scrotal skin and subcutaneous tissue without focal fluid collection or increased vascularity. Prescriptions: New amoxicillin-pot clavulanate 875-125 mg tablet 1 tab PO BID Qty: 14 0RF levofloxacin 750 mg tablet 750 mg PO DAILY Qty: 9 0RF No Action tamsulosin 0.4 mg capsule 0.4 mg PO DAILY 30 Days Qty: 90 3RF Referrals: [facility] [Provider Group] Print Language: Kyrgyz
[2024-09-12 07:33] LABS: MANUAL DIFF FLAG NO
[2024-09-12 07:41] LABS: Basophils Percent Auto 0.2 % (0-2); Eosinophils Percent Auto 0.1 % (0-4); Hematocrit 37.1 % (42.0-52.0); Hemoglobin 12.6 g/dl (14.0-18.0); Imm Gran Abs Auto 0.07 X10*3/uL (0.00-0.03); Imm Gran Pct Auto 0.6 % (0.0-0.4); Lymphocytes Absolute Auto 0.7 X10*3/uL (1.2-4.9); Lymphocytes Percent Auto 5.1 % (20-40); Mean Corpuscular Hemoglobin 29.4 pg (27.0-33.0); Mean Corpuscular Volume 86.7 fL (80.0-98.0); Monocytes Absolute Auto 1.4 X10*3/uL (0.1-1.2); Monocytes Percent Auto 10.8 % (2-11); Neutrophils Absolute Auto 10.5 x10*3/uL (2.0-8.3); Neutrophils Percent Auto 83.2 % (45-73); Platelet Count 180 X10*3/uL (160-400); Red Blood Count 4.28 X10*6/uL (4.60-5.80); Red Cell Distribution Width 11.8 % (11.0-16.0); White Blood Count 12.6 X10*3/uL (4.8-10.8)
[2024-09-12 07:48] LABS: INTERNATIONAL NORM RATIO 1.2 (0.9-1.1); Prothrombin Time 13.4 SEC (10.9-12.4)
[2024-09-12 07:49] LABS: Alanine Aminotransferase 12 U/L (0-40); Alkaline Phosphatase 98 U/L (39-117); Anion Gap 14 (12-20); Aspartate Amino Transferase 23 U/L (5-37); Bilirubin Direct 0.4 mg/dL (0.0-0.5); Bilirubin Total 1.1 mg/dL (0.0-1.0); Blood Urea Nitrogen 15 mg/dL (9-16); Carbon Dioxide 28 mmol/L (22-29); Chloride 98 mmol/L (96-108); Creatinine Clr Calc Pharmacy 66.8; Estimated Glomerular Filt Rate > 60; Glucose Random 98 mg/dL (60-115); Sodium 136 mmol/L (135-145); Total Protein 7.5 g/dL (6.5-8.0)
[2024-09-12 07:56] LABS: Lactic Acid 1.2 mmol/L (0.5-2.0)
[2024-09-12] MEDS: Piperacillin Sodium/Tazobactam 3.375 GM in 0.9 % Sodium Chloride 50 ML IV (07:57)
[2024-09-12 08:07] LABS: Appearance Urine Turbid; Color Urine Yellow; Glucose Urine UA Negative (Negative); Leukocyte Esterase Urine Large (3+) (Negative); Nitrite Urine Positive (Negative); PH 7.5 (5.0-9.0); UMIC TRIGGER UACC YES; Urine Blood Large (3+) (Negative); Urine Ketones 15 mg/dL (Negative); Urine Protein 100 (2+) mg/dL (Neg-Trace)
[2024-09-12 08:12] LABS: Bacteria Urine 4+ (None Seen); Hyaline Casts Urine 0-2 /LPF (0-2); RBC Urine >20 /HPF (0-2); Squamous Epithelial Cell Urine 0-2 /HPF (0-2); UACC Culture Trigger YES; WBC Urine >50 /HPF (0-5)
[2024-09-12 10:15] VITALS: BP 117/74; PULSE 87; RESP 18; TEMP 36.6; O2SAT 98
[2024-09-12] MEDS: levoFLOXacin/D5W 750 MG/150 ML PIGGYBACK 100 MG IV (10:26)
[2024-09-12 10:53] VITALS: BP 117/74; PULSE 87; RESP 18; TEMP 36.6; O2SAT 98
== END 2024-09-12 12:16 | disposition home or self-care (01) ==
PROVIDERS: Emergency Provider Emergency Medicine
DX: N45.3 Epididymo-orchitis (principal); N30.01 Acute cystitis with hematuria; N49.2 Inflammatory disorders of scrotum; N50.812 Left testicular pain; R33.9 Retention of urine, unspecified; R79.1 Abnormal coagulation profile; Z79.899 Other long term (current) drug therapy
CPT/HCPCS: 36415; 76775; 76870; 80048; 80076; 81001; 83605; 83735; 85025; 85610; 87040; 87086; 87088; 87186; 93975; 96365; 96366; 96367; 99284; J1956; J2543

== ENCOUNTER 2024-10-21 07:39 | Outpatient (REF) | payer MEDICARE, SELFPAY ==
--- NOTE | ~2024-10-21 | US_ITS ---
CLINICAL HISTORY: N13.30 - Unspecified hydronephrosis Exam: Ultrasound of the kidneys. Comparison: September 12, 2024. Findings: Right kidney measures 8.9 x 5.0 x 4.8 cm in size. Echogenic focus within the upper pole of the right kidney measures 4 mm in size. There is a 6 mm cyst within the upper pole of the right kidney. No hydronephrosis. Left kidney measures 9.9 x 4.9 x 5.6 cm in size. There is a 4 mm cyst within the lower pole of the left kidney. No hydronephrosis. Impression: Nonobstructing stone within the upper pole of the right kidney. This document has been electronically signed by: Jameson Haney MD on 10/22/2024 10:02:07
== END 2024-10-21 07:40 | disposition home or self-care (01) ==
LOC: HO.US 07:39
PROVIDERS: Visit Provider Urology
DX: N13.30 Unspecified hydronephrosis (principal)
CPT/HCPCS: 76775

== ENCOUNTER → 2024-10-21 07:44 | Outpatient (BNV) | payer MEDICARE, SELFPAY | PROVIDERS: Visit Provider Radiology Diagnostic Radiology | DX: N20.0 Calculus of kidney (principal) | CPT/HCPCS: 76775 ==

== ENCOUNTER 2024-11-12 08:06 | Outpatient (AMB) | payer MEDICARE, SELFPAY ==
--- NOTE | 2024-11-12 08:17 | A.OFFVIS_ITS ---
Intake Visit Reasons: 10w/US/PVR Intake Note: Urology medications: flomax Allergies: kefzol Passed VT 08/31/24 Seen in ER 09/12/24 Welfare Worker Required: No Allergies cefazolin [From Kefzol] Allergy (Mild, Verified 09/12/24 06:58) RASH Medication List - Last Reconciled 11/12/24 by Chris Carver LPN amoxicillin-pot clavulanate 875-125 mg 1 tab PO BID levofloxacin 750 mg PO DAILY tamsulosin 0.4 mg PO DAILY 30 days HPI Comments Details: 11/12/2024--Bo is a 64-year-old male who is followed for BPH with symptoms of urinary retention. He had a Miller catheter which was removed he is on tamsulosin daily. Bladder scan PVR today is 151 mL. Renal US 10/21/24--Right kidney kidney stone 4 mm in size. 6 mm cyst within the upper pole of the right kidney. Left kidney measures 4 mm cyst within the lower pole of the left kidney. No hydronephrosis. 08/31/24--Bo was seen in the ED 07/30/24--64 yo male with PMH of kidney stones presented with L flank pain and difficulty urinating, imller was placed. Voiding trial today. Discussed with the patient that I want to continue the tamsulosin daily. The patient states he has a history of kidney stones about 20 years he passed a stone on the right side. Plan will re-evaluate kidneys with renal ultrasound to be sure that the hydronephrosis has resolved. Also PSA screening. no recent PSA CT - BPH, left hydro no stone, c/w recently passed stone CTAP-07/30/24--Edematous left kidney demonstrating perinephric stranding and moderate hydronephrosis. The left ureter is also moderately dilated throughout its course. An obstructing calculus is not visualized. Findings may be secondary to a recently passed stone, however, an obstructing bladder mass is not excluded. The bladder is prominently distended with moderate diffuse bladder wall thickening. The prostate gland is enl PFSH Medical History Hearing loss Social History Patient Tobacco Use Status: Never used Tobacco Review of Systems Const All systems reviewed & are unremarkable except as noted in HPI and below Reports no additional complaints Eyes Reports no additional complaints ENT Reports no additional complaints Card Reports no additional complaints Resp Reports no additional complaints GI Reports no additional complaints Reports as per HPI Musc Reports no additional complaints Skin/Breast Reports system reviewed and no additional complaints, except as documented Neuro Reports no additional complaints Psych Reports no additional complaints Endo Reports no additional complaints Magen/Lymph Reports no additional complaints Aller/Immun Reports no additional complaints Office Procedures Post Void Residual Post Residual Void Post Void Residual (PVR): 151 [id number] Void Residual by ultrasound Results AMB Urinalysis, Automated UA Leukoctes 0 [place]/uL Last Edit by Chris Carver LPN on 11/12/24 08:25 UA Nitrite Negative Last Edit by Chris Carver LPN on 11/12/24 08:25 UA Urobilinogen 0.2 mg/dL Last Edit by Chris Carver LPN on 11/12/24 08:25 UA Protein 0 mg/dL Last Edit by Chris Carver LPN on 11/12/24 08:25 UA pH 6.0 Last Edit by Chris Carver LPN on 11/12/24 08:25 UA Blood 10 Daniel/uL Last Edit by Chris Carver LPN on 11/12/24 08:25 UA Specific [place] 1.010 Last Edit by Chris Carver LPN on 11/12/24 08:25 UA Ketone Negative Last Edit by Chris Carver LPN on 11/12/24 08:25 UA Bilirubin 0 mg/dL Last Edit by Chris Carver LPN on 11/12/24 08:25 UA Glucose 0 mg/dL Last Edit by Chris Carver LPN on 11/12/24 08:25 Results Reviewed Results Reviewed: Laboratory Last Values Urine pH (Auto) 6.0 11/12/24 08:17 Specific [place] (Auto) 1.010 11/12/24 08:17 Urine Protein (Auto) 0 mg/dL 11/12/24 08:17 Glucose (UA)(Auto) 0 mg/dL 11/12/24 08:17 Urine Ketones (Auto) Negative 11/12/24 08:17 Urine Blood (Auto) 10 Daniel/uL 11/12/24 08:17 Urine Nitrite (Auto) Negative 11/12/24 08:17 Urine Bilirubin (Auto) 0 mg/dL 11/12/24 08:17 Urine Urobilinogen (Auto) 0.2 mg/dL 11/12/24 08:17 Leukocyte Esterase (Auto) 0 [place]/uL 11/12/24 08:17 Date of Service: 10/21/24 Exam: Ultrasound of the kidneys. Comparison: September 12, 2024. Findings: Right kidney measures 8.9 x 5.0 x 4.8 cm in size. Echogenic focus within the upper pole of the right kidney measures 4 mm in size. There is a 6 mm cyst within the upper pole of the right kidney. No hydronephrosis. Left kidney measures 9.9 x 4.9 x 5.6 cm in size. There is a 4 mm cyst within the lower pole of the left kidney. No hydronephrosis. Impression: Nonobstructing stone within the upper pole of the right kidney. Date of Service: 07/30/24 CT ABDOMEN AND PELVIS WITHOUT CONTRAST CLINICAL INFORMATION: Left flank pain. Vomiting. COMPARISON: None available. TECHNIQUE: Multidetector volumetric imaging was performed from the superior aspect of the liver through the pubic symphysis. Sagittal and coronal reformatted images were obtained on the technologist's workstation. This CT examination was performed using dose optimization techniques as appropriate, variously including the following: *Automated exposure control *Adjustment of mA and/or kV according to patient size (this includes techniques or standardized protocols for targeted exams where dose is matched to indication/reason for exam; i.e. extremities or head) *Use of iterative reconstruction technique DLP: 379 mGy-cm FINDINGS: Visualized lung bases demonstrate mild dependent atelectasis. The liver is normal in size. There is a 2 cm cyst within the right hepatic lobe. Several other sub-5 mm hepatic hypodensities are too small to accurately characterize but statistically also cysts. The pancreas, spleen and adrenal glands are unremarkable. Edematous left kidney demonstrating perinephric stranding and moderate hydronephrosis. The left ureter is also moderately dilated throughout its course. An obstructing calculus is not visualized. The right kidney is grossly unremarkable. No right-sided renal calculi or right-sided hydronephrosis. Small hiatal hernia. Normal caliber loops of small and large bowel. Moderate colonic stool burden. Mild colonic diverticulosis without CT evidence to suggest active diverticulitis. Normal appendix. Normal caliber abdominal aorta. No retroperitoneal lymphadenopathy. The bladder is prominently distended. There is moderate diffuse bladder wall thickening. The prostate gland is enlarged and results in mass effect in the posterior bladder wall. Small fat-containing inguinal hernias bilaterally. No gross free pelvic fluid. No inguinal lymphadenopathy. Diffuse osteopenia. Scoliotic and degenerative changes of the spine. IMPRESSION: 1. Edematous left kidney demonstrating perinephric stranding and moderate hydronephrosis. The left ureter is also moderately dilated throughout its course. An obstructing calculus is not visualized. Findings may be secondary to a recently passed stone, however, an obstructing bladder mass is not excluded. Further evaluation can be obtained with direct inspection if clinically indicated. 2. The bladder is prominently distended with moderate diffuse bladder wall thickening. The prostate gland is enlarged and results in mass effect in the posterior bladder wall. 3. Moderate colonic stool burden suggesting constipation. 4. Mild colonic diverticulosis without CT evidence to suggest active diverticulitis. Assessment & Plan Assessment & Plan (1) BPH loc w urin obs/LUTS: Code(s): N40.1 - Benign prostatic hyperplasia with lower urinary tract symptoms Category: Medical (2) Screening PSA (prostate specific antigen): Code(s): Z12.5 - Encounter for screening for malignant neoplasm of prostate Category: Medical (3) Kidney stone: Code(s): N20.0 - Calculus of kidney Category: Medical Plan Right kidney stone 4 mm seen on ultrasound 10/21/2024. Left hydronephrosis is resolved. Of note right kidney stone was not noted on CT abdomen performed 08/2024. BPH. History of urinary retention. Bladder scan PVR is acceptable (151 mL. Will continue Flomax. Follow-up in 6 months PSA at time. Orders: Orders AMB Post Void Residual by ultrasound Today N40.1 - Benign prostatic hyperplasia with lower urinary tract symptoms, R33.9 - Retention of urine, unspecified PSA,Total (Free>4and<10) 6 Months N40.1 - Benign prostatic hyperplasia with lower urinary tract symptoms, Z12.5 - Encounter for screening for malignant neoplasm of prostate AMB Urinalysis Automated Today N40.1 - Benign prostatic hyperplasia with lower urinary tract symptoms, R33.9 - Retention of urine, unspecified US retroperitoneal comp 6 Months N20.0 - Calculus of kidney, N40.1 - Benign prostatic hyperplasia with lower urinary tract symptoms Coding Level of Care Code Est Pt Level 4 (80188) Complex EM visit Add On G2211 Diagnoses BPH loc w urin obs/LUTS N40.1 Screening PSA (prostate specific antigen) Z12.5 Kidney stone N20.0 CPT Codes Post Residual Void - PVR CPT Code: 76115-Emhb Void Residual by ultrasound ([id number])
== END 2024-11-12 08:55 | disposition home or self-care (01) ==
PROVIDERS: Visit Provider Urology
DX: N40.1 Benign prostatic hyperplasia with lower urinary tract symptoms (principal); Z12.5 Encounter for screening for malignant neoplasm of prostate; N20.0 Calculus of kidney; R33.9 Retention of urine, unspecified
CPT/HCPCS: 99214; G2211

== ENCOUNTER → 2024-11-12 08:06 | Outpatient (BNVA) | payer MEDICARE, SELFPAY | PROVIDERS: Visit Provider Urology | DX: Z12.5 Encounter for screening for malignant neoplasm of prostate (principal); N40.1 Benign prostatic hyperplasia with lower urinary tract symptoms; N20.0 Calculus of kidney | CPT/HCPCS: 51798; 81003; 99212 ==

== ENCOUNTER 2025-07-01 06:29 | Outpatient (REF) | payer MEDICARE, SELFPAY ==
--- OUTSIDE RECORDS SUMMARY | 2025-07-01 06:33 | XMS_ITS | Patient Health Record ---
Author Organization [facility] Address [address] [place] [address] Care Team Providers Care Hiv Prevention Specialist Name Role Phone Armaan uJlian Unavailable [phone] Reason For Referral No Information Plan Of Treatment No Information
[2025-07-01 09:00] LABS: PSA,Total (Free>4and<10) 3.05 ng/mL (0.00-4.00)
== END 2025-07-01 06:30 | disposition home or self-care (01) ==
LOC: HO.LAB 06:29
PROVIDERS: Visit Provider Urology
DX: Z12.5 Encounter for screening for malignant neoplasm of prostate (principal); N40.1 Benign prostatic hyperplasia with lower urinary tract symptoms
CPT/HCPCS: 36415; 84153

== ENCOUNTER 2025-07-09 09:36 | Outpatient (REF) | payer MEDICARE, SELFPAY ==
--- NOTE | ~2025-07-09 | US_ITS ---
CLINICAL HISTORY: N20.0 - Calculus of kidney --- Additional Notes or Special Instructions: please measure prostate US retroperitoneum with color Doppler Comparison: US - US RENAL BI - 10/21/24 07:52 EST US/SR - US RENAL BI - 09/12/24 09:07 EST Findings: Right kidney normal size and echotexture, 9.7 cm length. No hydronephrosis. Normal color flow. Renal cortical cyst midpole measuring 4 x 3 x 6 mm. Renal cortical calcification upper pole measuring 6 x 5 x 4 mm. Left kidney normal size and echotexture, 9.3 cm in length. No hydronephrosis. Normal color flow. Renal cortical calcification lower pole measuring 5 x 5 x 5 mm and 4 x 2 x 3 mm. Urinary bladder demonstrated urinary bladder wall thickening and trabeculation. Prevoid volume 598 mL. Postvoid volume 323 mL. Ureteral jets were demonstrated only on the left. Prostate measures 4.4 x 5.3 x 4.2 cm Impression: 1. Kidneys normal-size positioned with normal cortical width and echotexture. 2. Bilateral nonobstructing caliceal stones. Renal cortical cysts on the right appears simple. 3. Trabeculation of the urinary bladder wall with small diverticuli. 4. Prostate gland volume 55.0 mL This document has been electronically signed by: Ismael Madisno MD on 07/10/2025 15:45:00
--- OUTSIDE RECORDS SUMMARY | 2025-07-09 10:33 | XMS_ITS | Patient Health Record ---
Author Organization [facility] Address [address] [place] [address] Care Team Providers Care Senior Software Manager Name Role Phone Armaan Julian Unavailable [phone] Reason For Referral No Information Plan Of Treatment No Information
== END 2025-07-09 09:37 | disposition home or self-care (01) ==
LOC: HO.US 09:36
PROVIDERS: Visit Provider Urology
DX: N20.0 Calculus of kidney (principal); N40.1 Benign prostatic hyperplasia with lower urinary tract symptoms
CPT/HCPCS: 76770

== ENCOUNTER → 2025-07-09 09:38 | Outpatient (BNV) | payer MEDICARE, SELFPAY | PROVIDERS: Visit Provider Radiology Diagnostic Radiology | DX: N20.0 Calculus of kidney (principal); N28.1 Cyst of kidney, acquired; N32.3 Diverticulum of bladder | CPT/HCPCS: 76770 ==

== ENCOUNTER 2025-07-19 07:27 | Outpatient (AMB) | payer MEDICARE, SELFPAY ==
--- NOTE | 2025-07-19 07:28 | MHC.OFFVIS ---
Intake Visit Reasons: follow up/US/PSA Intake Note: Patient presents for Telehealth follow up Urology medications: Tamsulosin Allergies: kefzol Labs done: 07/01/25 : PSA 3.05 Imaging done :07/10/25 Retroperitoneal Ultrasound Fence Erector Supervisor Required: No Accompanied by: Self / Same As Patient Allergies cefazolin (From Kefzol) Allergy (Mild, Verified 07/19/25 07:28) RASH Medication List - Last Reconciled 07/19/25 by Jacob Mccullough MD tamsulosin 0.4 mg PO DAILY 90 days HPI Comments Details: 07/19/25--Bo is a 65-year-old male who is followed for BPH and kidney stones. He had PSA done on 07/01/2025 resulting 3.05 ng/mL. Renal ultrasound performed on 07/10 25 kidneys-right kidney renal stone 6 mm left kidney 2 stones 5 and 4 mm in the lower pole urinary bladder with bladder wall thickening prostate gland volume estimated at 55 mL. We will continue tamsulosin daily follow-up in 1 year continue PSA screening and we will continue to monitor kidney stones. History of Present Illness The patient is a 65-year-old male presenting for follow-up of benign prostatic hyperplasia and nephrolithiasis. The patient is currently taking tamsulosin and reports no significant urinary symptoms. Results - Labs: PSA level of 3.05 ng/mL - Imagin07/09/25--US Retroperitoneal--Findings: Right kidney --upper pole measuring 6 x 5 x 4 mm. Left kidney -lower pole 5 x 5 x 5 mm and 4 x 2 x 3 mm. Trabeculation of the urinary bladder wall with small diverticuli. Prostate gland volume 55.0 mL Plan 1. Benign Prostatic Hyperplasia (Bph) - Continue tamsulosin therapy to manage symptoms. - Monitor PSA levels and prostate size with annual follow-up. 2. Nephrolithiasis (Kidney Stones) - Monitor kidney stones with annual ultrasound to assess for changes in size or number. - Encourage hydration to facilitate stone passage. 11/12/2024--Bo is a 64-year-old male who is followed for BPH with symptoms of urinary retention. He had a Miller catheter which was removed he is on tamsulosin daily. Bladder scan PVR today is 151 mL. Renal US 10/21/24--Right kidney kidney stone 4 mm in size. 6 mm cyst within the upper pole of the right kidney. Left kidney measures 4 mm cyst within the lower pole of the left kidney. No hydronephrosis. 08/31/24--Edward was seen in the ED 07/30/24--64 yo male with PMH of kidney stones presented with L flank pain and difficulty urinating, miller was placed. Voiding trial today. Discussed with the patient that I want to continue the tamsulosin daily. The patient states he has a history of kidney stones about 20 years he passed a stone on the right side. Plan will re-evaluate kidneys with renal ultrasound to be sure that the hydronephrosis has resolved. Also PSA screening. no recent PSA CT - BPH, left hydro no stone, c/w recently passed stone CTAP-07/30/24--Edematous left kidney demonstrating perinephric stranding and moderate hydronephrosis. The left ureter is also moderately dilated throughout its course. An obstructing calculus is not visualized. Findings may be secondary to a recently passed stone, however, an obstructing bladder mass is not excluded. The bladder is prominently distended with moderate diffuse bladder wall thickening. The prostate gland is enl PFSH Medical History Hearing loss Social History Patient Tobacco Use Status: Never used Tobacco Review of Systems Const All systems reviewed & are unremarkable except as noted in HPI and below Reports no additional complaints Eyes Reports no additional complaints ENT Reports no additional complaints Card Reports no additional complaints Resp Reports no additional complaints GI Reports no additional complaints Reports as per HPI Musc Reports no additional complaints Skin/Breast Reports system reviewed and no additional complaints, except as documented Neuro Reports no additional complaints Psych Reports no additional complaints Endo Reports no additional complaints Magen/Lymph Reports no additional complaints Aller/Immun Reports no additional complaints Telehealth Telehealth Telehealth [facility] Location of provider rendering services: practice address Location of patient: address on file Patient Identification confirmed using: Name, : Yes Telehealth method: voice only Patient verbally consented to treatment: Yes Patient verbally consented to billing insurance company: Yes Patient informed of any privacy concerns related to visit: Yes Minutes spent on Phone/Video with Pt.: 14 Results Reviewed Results Reviewed: Date of Service: 07/09/25 CLINICAL HISTORY: N20.0 - Calculus of kidney --- Additional Notes or Special Instructions: please measure prostate US retroperitoneum with color Doppler Comparison: US - US RENAL BI - 10/21/24 07:52 EST US/SR - US RENAL BI - 09/12/24 09:07 EST Findings: Right kidney normal size and echotexture, 9.7 cm length. No hydronephrosis. Normal color flow. Renal cortical cyst midpole measuring 4 x 3 x 6 mm. Renal cortical calcification upper pole measuring 6 x 5 x 4 mm. Left kidney normal size and echotexture, 9.3 cm in length. No hydronephrosis. Normal color flow. Renal cortical calcification lower pole measuring 5 x 5 x 5 mm and 4 x 2 x 3 mm. Urinary bladder demonstrated urinary bladder wall thickening and trabeculation. Prevoid volume 598 mL. Postvoid volume 323 mL. Ureteral jets were demonstrated only on the left. Prostate measures 4.4 x 5.3 x 4.2 cm Impression: 1. Kidneys normal-size positioned with normal cortical width and echotexture. 2. Bilateral nonobstructing caliceal stones. Renal cortical cysts on the right appears simple. 3. Trabeculation of the urinary bladder wall with small diverticuli. 4. Prostate gland volume 55.0 mL Date of Service: 10/21/24 Exam: Ultrasound of the kidneys. Comparison: September 12, 2024. Findings: Right kidney measures 8.9 x 5.0 x 4.8 cm in size. Echogenic focus within the upper pole of the right kidney measures 4 mm in size. There is a 6 mm cyst within the upper pole of the right kidney. No hydronephrosis. Left kidney measures 9.9 x 4.9 x 5.6 cm in size. There is a 4 mm cyst within the lower pole of the left kidney. No hydronephrosis. Impression: Nonobstructing stone within the upper pole of the right kidney. Date of Service: 07/30/24 CT ABDOMEN AND PELVIS WITHOUT CONTRAST CLINICAL INFORMATION: Left flank pain. Vomiting. COMPARISON: None available. TECHNIQUE: Multidetector volumetric imaging was performed from the superior aspect of the liver through the pubic symphysis. Sagittal and coronal reformatted images were obtained on the technologist's workstation. This CT examination was performed using dose optimization techniques as appropriate, variously including the following: *Automated exposure control *Adjustment of mA and/or kV according to patient size (this includes techniques or standardized protocols for targeted exams where dose is matched to indication/reason for exam; i.e. extremities or head) *Use of iterative reconstruction technique DLP: 379 mGy-cm FINDINGS: Visualized lung bases demonstrate mild dependent atelectasis. The liver is normal in size. There is a 2 cm cyst within the right hepatic lobe. Several other sub-5 mm hepatic hypodensities are too small to accurately characterize but statistically also cysts. The pancreas, spleen and adrenal glands are unremarkable. Edematous left kidney demonstrating perinephric stranding and moderate hydronephrosis. The left ureter is also moderately dilated throughout its course. An obstructing calculus is not visualized. The right kidney is grossly unremarkable. No right-sided renal calculi or right-sided hydronephrosis. Small hiatal hernia. Normal caliber loops of small and large bowel. Moderate colonic stool burden. Mild colonic diverticulosis without CT evidence to suggest active diverticulitis. Normal appendix. Normal caliber abdominal aorta. No retroperitoneal lymphadenopathy. The bladder is prominently distended. There is moderate diffuse bladder wall thickening. The prostate gland is enlarged and results in mass effect in the posterior bladder wall. Small fat-containing inguinal hernias bilaterally. No gross free pelvic fluid. No inguinal lymphadenopathy. Diffuse osteopenia. Scoliotic and degenerative changes of the spine. IMPRESSION: 1. Edematous left kidney demonstrating perinephric stranding and moderate hydronephrosis. The left ureter is also moderately dilated throughout its course. An obstructing calculus is not visualized. Findings may be secondary to a recently passed stone, however, an obstructing bladder mass is not excluded. Further evaluation can be obtained with direct inspection if clinically indicated. 2. The bladder is prominently distended with moderate diffuse bladder wall thickening. The prostate gland is enlarged and results in mass effect in the posterior bladder wall. 3. Moderate colonic stool burden suggesting constipation. 4. Mild colonic diverticulosis without CT evidence to suggest active diverticulitis. Assessment & Plan Assessment & Plan (1) BPH loc w urin obs/LUTS: Code(s): N40.1 - Benign prostatic hyperplasia with lower urinary tract symptoms Category: Medical (2) Screening PSA (prostate specific antigen): Code(s): Z12.5 - Encounter for screening for malignant neoplasm of prostate Category: Medical (3) Kidney stone: Code(s): N20.0 - Calculus of kidney Category: Medical Plan Plan 1. Benign Prostatic Hyperplasia (Bph) - Continue tamsulosin therapy to manage symptoms. - Monitor PSA levels and prostate size with annual follow-up. 2. Nephrolithiasis (Kidney Stones) - Monitor kidney stones with annual ultrasound to assess for changes in size or number. - Encourage hydration to facilitate stone passage. Medications: Changed From tamsulosin 0.4 mg PO DAILY 30 days 90 caps 3RF N40.1 - Benign prostatic hyperplasia with lower urinary tract symptoms To tamsulosin 0.4 mg PO DAILY 90 caps 3RF 90 days N40.1 - Benign prostatic hyperplasia with lower urinary tract symptoms Patient Instructions: The patient had an opportunity to ask questions regarding treatment plan. The patient expressed understanding and agreement with the above treatment plan. The patient is aware they should contact our office by phone for worsening of their current condition or the appearance of new symptoms. Compliance is encouraged with any medications and followup testing that is ordered. It is a privilege to be allowed the opportunity to participate in the urologic care of your patient. If you have any questions or concerns regarding treatment for the above conditions please do not hesitate to contact me. The office telephone contact is [phone]. This note is constructed in part using voice recognition software. While every effort has been made to ensure accuracy sheet rock nailer errors may have been included. Yours sincerely, Jacob Mccullough MD Scribe Plan - Not visible on output: Patient was informed and verbally consented to the use of an ambient scribe for clinic note documentation during this visit. Coding Level of Care Code Tele Est Pt Level 3 (36358) Complex EM visit Add On G2211 Diagnoses BPH loc w urin obs/LUTS N40.1 Screening PSA (prostate specific antigen) Z12.5 Kidney stone N20.0
--- OUTSIDE RECORDS SUMMARY | 2025-07-19 07:29 | XMS_ITS | Patient Health Record ---
Author Organization [facility] Address [address] [place] [address] Care Team Providers Care Dust Box Worker Name Role Phone JulianArmaan Unavailable [phone] Reason For Referral No Information Plan Of Treatment No Information
== END 2025-07-19 09:04 | disposition home or self-care (01) ==
LOC: HO.HUSH 07:27
PROVIDERS: Visit Provider Urology
DX: N40.1 Benign prostatic hyperplasia with lower urinary tract symptoms (principal); Z12.5 Encounter for screening for malignant neoplasm of prostate; N20.0 Calculus of kidney
CPT/HCPCS: 99213; G2211